=== PATIENT | female | born 1945 | race Caucasian/White ===

== ENCOUNTER 2018-03-19 14:28 | Observation (INO) | payer OTHER ==
[2018-03-19 14:57] LABS: Absolute Lymphocytes (CBC) 0.7 K/uL (0.7-4.9); Absolute Monocytes 0.5 K/uL (0.1-1.3); Absolute Neutrophil 3.5 K/uL (1.8-8.0); Basophils % 0.9 % (0-1.3); Eosinophils % 2.5 % (0-4.4); Hematocrit 34.6 % (36.0-45.0); Lymphocytes % 14.6 % (15.3-44.8); MCV 92.3 fL (80-100); MPV 6.9 fL (7.6-11.3); Monocytes % 9.6 % (3.3-12.3); RBC Red Blood Cell Count 3.75 M/uL (3.86-4.86)
--- NOTE | 2018-03-19 15:02 | RAD REPORT ---
EXAM DESCRIPTION: CT - Head Brain Wo Cont - 03/19/2018 2:56 pm CLINICAL HISTORY: Altered consciousness, weakness. COMPARISON: None. TECHNIQUE: All CT scans are performed using dose optimization technique as appropriate and may inclu de automated exposure control or mA/KV adjustment according to patient size. FINDINGS: No intracranial hemorrhage, hydrocephalus or extra-axial fluid collection.Mild generalized brain atrophy is present with mild periventricular and deep white matter chronic microvascular ische romaine changes.No areas of brain edema or evidence of midline shift. The paranasal sinuses and mastoids are clear. The calvarium is intact. IMPRESSION: No acute intracranial abnormality.
[2018-03-19 15:04] LABS: Protime INR 0.91
--- NOTE | 2018-03-19 15:10 | RAD REPORT ---
EXAM DESCRIPTION: RAD - Chest Single View - 03/19/2018 3:05 pm CLINICAL HISTORY: Chest pain. COMPARISON: None. FINDINGS: Portable technique limits examination quality. The lungs are grossly clear. The heart is normal in size. No displaced fractures.Sternotomy wires not ed. IMPRESSION: No acute intrathoracic process suspected.
[2018-03-19 15:11] LABS: Bicarbonate 26 mEq/L (21-31); Glucose Level 243 mg/dL (65-120); Potassium 3.9 mEq/L (3.6-5.0); Sodium Level 137 mEq/L (135-145)
[2018-03-19 15:17] LABS: ALT/SGPT 22 IU/L (10-60); AST/SGOT 24 IU/L (10-42); Albumin 4.1 g/dL (3.2-5.5); Alkaline Phosphatase 119 IU/L (42-121); BUN Blood Urea Nitrogen 31 mg/dL (6-20); Bilirubin Direct < 0.1 mg/dL (0-0.2); Bilirubin Total 0.5 mg/dL (0.3-1.2); Creatine Phosphokinase 30 IU/L (22-269); Magnesium 2.1 mg/dL (1.8-2.5); Protein, Total 7.2 g/dL (6.0-8.3)
[2018-03-19 15:20] LABS: CKMB Creatine Kinase MB 1.3 ng/ml (0.3-4.0)
[2018-03-19] MEDS ORDERED: NA CHLORIDE 0.9% 1,000 ML ONE (15:36)
[2018-03-19] MEDS ORDERED: CEFTRIAXONE/SWI 1gm 1 GM/10 ML SYR ONE (16:18)
[2018-03-19 16:20] LABS: Urine Amorphous Sediment 1+ /HPF (NONE SEEN); Urine Bacteria 20-50 /HPF (<20); Urine Culture Reflex Order REFLEXED; Urine Mucus 1+ /HPF (NONE SEEN); Urine RBC <5 /HPF (NONE SEEN)
[2018-03-19] MEDS ORDERED: ACETAMINOPHEN 500 MG TAB PO PRN (16:43)
[2018-03-19] MEDS ORDERED: ONDANSETRON 4 MG/2 ML VIAL IV PRN (16:43)
--- NOTE | 2018-03-19 16:46 | EDPHYS ---
Physician Documentation [facility] Name: Annette Bautista Age: 72 yrs Sex: Female : 1945 Arrival Date: 03/19/2018 Time: 14:32 Bed 15 Private MD: ED Physician Chaka Phelps HPI: 03/19 14:36 This 72 yrs old Female presents to ER via Unassigned with complaints of cp General Weakness. 14:36 The patient presents to the emergency department with weakness of the entire body, cp generalized weakness, difficulty standing, the patient cannot stand, the patient is generally weak. Onset: The symptoms/episode began/occurred today. 14:36 Patient's baseline: Neuro: alert and fully oriented, Motor: no deficits, Ambulation: cp walks without assistance, Speech: normal. 14:36 Associated signs and symptoms: Pertinent negatives: altered mental status, fever, cp headache, neck stiffness. Historical: - Allergies: 14:49 NKA; iw - Home Meds: 14:55 Lantus 100 unit/mL Sub-Q soln [Active]; iw 15:06 Levemir 100 unit/mL subcutaneous soln [Active]; sucralfate 1 gram Oral tab [Active]; iw Abilify 2 mg oral tab [Active]; Zoloft 50 mg Oral tab [Active]; - PMHx: 14:49 Myocardial infarction; iw 14:55 Diabetes - IDDM; iw - PSHx: 14:49 Hysterectomy; ; Heart stents; iw 14:55 CABG; iw - Immunization history:: Adult Immunizations up to date. - Social history:: Smoking status: Patient/guardian denies using tobacco. ROS: 14:40 Constitutional: Negative for body aches, chills, fever, poor PO intake. cp 14:40 Eyes: Negative for injury, pain, redness, and discharge. cp 14:40 ENT: Negative for drainage from ear(s), ear pain, sore throat, difficulty swallowing, difficulty handling secretions. 14:40 Cardiovascular: Negative for chest pain, edema, palpitations. 14:40 Respiratory: Negative for cough, shortness of breath, wheezing. 14:40 Abdomen/GI: Negative for abdominal pain, vomiting, diarrhea, constipation, anorexia, black/tarry stool, rectal bleeding. 14:40 Back: Negative for pain at rest, pain with movement, radiated pain. 14:40 : Negative for urinary symptoms. 14:40 Skin: Negative for cellulitis, rash. 14:40 Neuro: Positive for general weakness, Negative for altered mental status, headache, syncope, near syncope. 14:40 All other systems are negative. Exam: 14:42 ECG was reviewed by the Attending Physician. cp 14:48 Constitutional: The patient appears in no acute distress, alert, awake, cp non-diaphoretic, non-toxic, well developed, well nourished. 14:48 Head/Face: Normocephalic, atraumatic. cp 14:48 Eyes: Periorbital structures: appear normal, Pupils: equal, round, and reactive to light and accomodation, Extraocular movements: intact throughout, Conjunctiva: normal, no exudate, no injection, Sclera: no appreciated abnormality, Lids and lashes: appear normal, bilaterally. 14:48 ENT: External ear(s): are unremarkable, Ear canal(s): are normal, clear, TM's: dullness, bilaterally, Nose: is normal, Mouth: Lips: moist, Oral mucosa: moist, Posterior pharynx: is normal, airway is patent, no erythema, no exudate. 14:48 Neck: ROM/movement: is normal, is supple, no range of motions limitations, no meningismus, no nuchal rigidity. 14:48 Chest/axilla: Inspection: normal, Palpation: is normal, no crepitus, no tenderness. 14:48 Cardiovascular: Rate: normal, Rhythm: regular, Pulses: Pulses are 2+ in right radial artery and left radial artery. Edema: is not appreciated, JVD: is not appreciated. 14:48 Respiratory: the patient does not display signs of respiratory distress, Respirations: normal, no use of accessory muscles, no retractions, no splinting, no tachypnea, labored breathing, is not present, Breath sounds: decreased breath sounds, that are mild, throughout, rhonchi, are not appreciated, stridor, is not appreciated, wheezing: is not appreciated. 14:48 Abdomen/GI: Inspection: abdomen appears normal, Bowel sounds: active, all quadrants, Palpation: abdomen is soft and non-tender, in all quadrants, rebound tenderness, is not appreciated, voluntary guarding, is not appreciated, involuntary guarding, is not appreciated. 14:48 Back: pain, is absent. 14:48 Skin: cellulitis, is not appreciated, no rash present. 14:48 Neuro: Orientation: to person, place \T\ time. Mentation: lucid, able to follow commands, Cerebellar function: is grossly normal, Motor: moves all fours, general weakness w/o focal deficits, Sensation: no obvious gross deficits. Vital Signs: 14:41 BP 110 / 59; Pulse 68; Resp 14 S; Temp 99.0(O); Pulse Ox 92% on R/A; Weight 77.11 kg; iw Height 5 ft. 3 in. (160.02 cm); Pain 0/10; 15:45 BP 151 / 71; Pulse 75; Resp 15; Pulse Ox 98% on R/A; Pain 0/10; em 16:48 BP 141 / 65; Pulse 73; Resp 16; Pulse Ox 96% on R/A; Pain 0/10; em 17:50 BP 124 / 57; Pulse 73; Resp 16; Temp 98.6(O); Pulse Ox 94% on R/A; Pain 0/10; em 14:41 Body Mass Index 30.11 (77.11 kg, 160.02 cm) iw MDM: 14:37 Patient medically screened. cp 15:00 Differential diagnosis: bacterial infection, pneumonia UTI, meningitis, sepsis. cp 16:30 Data reviewed: vital signs, nurses notes, lab test result(s), EKG, radiologic studies, cp CT scan, plain films. 16:35 Physician consultation: Barbara Sheldon MD was contacted at 16:35, regarding admission, cp to the telemetry unit. patient's condition, and will see patient in ED, shortly. 03/19 14:36 Order name: Basic Metabolic Panel; Complete Time: 15:32 cp 03/19 15:48 Interpretation: Normal except: GLUC 243; BUN 31; CRE 1.36; GFR 38. cp 03/19 14:36 Order name: BNP; Complete Time: 15:32 cp 03/19 14:36 Order name: CBC with Diff; Complete Time: 15:15 cp 03/19 15:15 Interpretation: Normal except: RBC 3.75; HCT 34.6; MPV 6.9; LYM% 14.6. cp 03/19 14:36 Order name: Ckmb; Complete Time: 15:32 cp 03/19 14:36 Order name: CPK; Complete Time: 15:32 cp 03/19 14:36 Order name: LFT's; Complete Time: 15:32 cp 03/19 14:36 Order name: Magnesium; Complete Time: 15:32 cp 03/19 14:36 Order name: PT-INR; Complete Time: 15:15 cp 03/19 14:36 Order name: Ptt, Activated; Complete Time: 15:15 cp 03/19 14:36 Order name: Troponin (emerg Dept Use Only); Complete Time: 15:32 cp 03/19 14:36 Order name: Blood Culture Adult (2) 03/19 14:36 Order name: Lactate; Complete Time: 15:48 cp 03/19 14:36 Order name: Procalcitonin; Complete Time: 15:48 cp 03/19 15:51 Order name: Urine Microscopic Only; Complete Time: 16:27 cp 03/19 16:27 Interpretation: Abnormal: UBACT 20-50. 03/19 14:36 Order name: XRAY Chest (1 view); Complete Time: 15:15 cp 03/19 14:36 Order name: EKG; Complete Time: 14:36 cp 03/19 14:36 Order name: Cardiac monitoring; Complete Time: 14:49 cp 03/19 14:36 Order name: EKG - Nurse/Tech; Complete Time: 14:49 cp 03/19 14:36 Order name: IV Saline Lock; Complete Time: 14:49 03/19 14:36 Order name: Labs collected and sent; Complete Time: 14:49 03/19 14:36 Order name: O2 Per Protocol; Complete Time: 14:49 cp 03/19 14:36 Order name: O2 Sat Monitoring; Complete Time: 14:50 03/19 14:36 Order name: Urine Dipstick-Ancillary (obtain specimen); Complete Time: 15:50 03/19 14:36 Order name: CT Head Brain wo Cont; Complete Time: 15:15 cp 03/19 15:15 Interpretation: Report reviewed. 03/19 15:54 Order name: Urine Dipstick--Ancillary (enter results) eb 03/19 16:22 Order name: Urine Culture [facility] 03/19 16:47 Order name: Heart Healthy [facility] 03/19 16:47 Order name: Physical Therapy Consult [facility] 03/19 14:36 Order name: Cath; Complete Time: 15:50 cp EC:42 Rate is 68 beats/min. Rhythm is regular. MS interval is normal. QRS interval is normal. cp QT interval is normal. No ST changes noted. Interpreted by me. Reviewed by me. Administered Medications: 15:45 Drug: NS 0.9% 1000 ml Route: IV; Rate: 1 bolus; Site: right forearm; em 16:57 Follow up: IV Status: Completed infusion; IV Intake: 1000ml em 16:25 Drug: Rocephin - (cefTRIAXone) 1 grams Route: IVPB; Infused Over: 30 mins; Site: right iw forearm; 17:00 Follow up: Response: No adverse reaction; IV Status: Completed infusion em Point of Care Testing: Blood Glucose: 14:41 Blood Glucose: 253 mg/dL; iw Ranges: Critical Glucose Levels:Adult <50 mg/dl or >400 mg/dl <40 mg/dl or >180 mg/dl Disposition: 03/19/18 16:45 Hospitalization ordered by Barbara Sheldon for Observation. Preliminary diagnosis are Weakness - Generalized, Urinary tract infection, site not specified. - Bed requested for Telemetry/MedSurg (observation). - Status is Observation. em - Condition is Stable. - Problem is new. - Symptoms have improved. UTI on Admission? Yes Addendum: 03/21/2018 08:59 Co-signature as Attending Physician, Chaka Phelps MD I agree with the assessment and c garcia plan of care. Signatures: Dispatcher [employer] [facility] Chaka Phelps MD MD cha Munoz, Edgar, SPINNING DOFFER SPINNING DOFFER em Danielle Ochoa RN RN iw Chaka Cooley PA PA cp Botello, Elizabeth eb Corrections: (The following items were deleted from the chart) 03/19 15:06 14:55 Home Meds: Novolog 100 unit/mL Sub-Q soln; iw iw
--- NOTE | 2018-03-19 16:46 | ER ---
Nurse's Notes [facility] Name: Annette Bautista Age: 72 yrs Sex: Female : 1945 Arrival Date: 03/19/2018 Time: 14:32 Bed 15 Private MD: Diagnosis: Weakness-Generalized;Urinary tract infection, site not specified Presentation: 03/19 14:37 Presenting complaint: EMS states: pt has been feeling bad for past couple days, today iw she c/o increased generalized weakness, couldn't stand up, EMS states pt was in car when she arrived on scene, appeared pale and lethargic, BP was 70's over 30 on scene, VB=678, pt A\T\OX3 upon arrival to ER, BP up to 110 systolic, denies CP or SOB, c/o dizziness. Transition of care: patient was not received from another setting of care. Onset of symptoms was March 17, 2018. Initial Sepsis Screen: Does the patient meet any 2 criteria? No. Patient's initial sepsis screen is negative. Does the patient have a suspected source of infection? No. Patient's initial sepsis screen is negative. Care prior to arrival: Glucose check: 244. 14:37 Method Of Arrival: EMS: [facility] iw 14:37 Acuity: PADMINI 2 iw Triage Assessment: 15:34 General: Appears. em Historical: - Allergies: 14:49 NKA; iw - Home Meds: 14:55 Lantus 100 unit/mL Sub-Q soln [Active]; iw 15:06 Levemir 100 unit/mL subcutaneous soln [Active]; sucralfate 1 gram Oral tab [Active]; iw Abilify 2 mg oral tab [Active]; Zoloft 50 mg Oral tab [Active]; - PMHx: 14:49 Myocardial infarction; iw 14:55 Diabetes - IDDM; iw - PSHx: 14:49 Hysterectomy; ; Heart stents; iw 14:55 CABG; iw - Immunization history:: Adult Immunizations up to date. - Social history:: Smoking status: Patient/guardian denies using tobacco. Screenin:55 Abuse screen: Denies threats or abuse. Denies injuries from another. Nutritional iw screening: No deficits noted. Tuberculosis screening: No symptoms or risk factors identified. Fall Risk IV access (20 points). Assessment: 14:50 General: Appears in no apparent distress. ill, Behavior is calm, cooperative, flat. em Pain: Denies pain. Neuro: Level of Consciousness is awake, alert, obeys commands, Oriented to person, place, time, situation, Weakness Speech is normal, Facial symmetry appears normal, Reports weakness since this morning. Cardiovascular: Capillary refill < 3 seconds Patient's skin is warm and dry. Cardiovascular: Heart tones S1 S2 present Rhythm is sinus rhythm. Respiratory: Airway is patent Respiratory effort is even, unlabored, Respiratory pattern is regular, symmetrical. GI: Abdomen is flat. : No signs and/or symptoms were reported regarding the genitourinary system. EENT: No signs and/or symptoms were reported regarding the EENT system. Derm: Skin is intact, Skin is pink, warm \T\ dry. Musculoskeletal: Range of motion: intact in all extremities. 14:55 Reassessment: Patient appears in no apparent distress at this time. I agree with above iw assessment by Portillo Will LVN. 15:33 Reassessment: critical lab result, lactate 28.5, ANA Castañeda notified. em 16:30 Reassessment: Patient appears in no apparent distress at this time. Patient and/or em family updated on plan of care and expected duration. Pain level reassessed. Patient is alert, oriented x 3, equal unlabored respirations, skin warm/dry/pink. friend at bedside. 16:44 Reassessment: Patient appears in no apparent distress at this time. Patient and/or em family updated on plan of care and expected duration. Pain level reassessed. Patient is alert, oriented x 3, equal unlabored respirations, skin warm/dry/pink. Need any information call Dayanara (friend) [phone] Patient states feeling better. 17:48 Reassessment: Patient appears in no apparent distress at this time. Patient and/or em family updated on plan of care and expected duration. Pain level reassessed. Patient is alert, oriented x 3, equal unlabored respirations, skin warm/dry/pink. resting comfortably in bed. Vital Signs: 14:41 BP 110 / 59; Pulse 68; Resp 14 S; Temp 99.0(O); Pulse Ox 92% on R/A; Weight 77.11 kg; iw Height 5 ft. 3 in. (160.02 cm); Pain 0/10; 15:45 BP 151 / 71; Pulse 75; Resp 15; Pulse Ox 98% on R/A; Pain 0/10; em 16:48 BP 141 / 65; Pulse 73; Resp 16; Pulse Ox 96% on R/A; Pain 0/10; em 17:50 BP 124 / 57; Pulse 73; Resp 16; Temp 98.6(O); Pulse Ox 94% on R/A; Pain 0/10; em 14:41 Body Mass Index 30.11 (77.11 kg, 160.02 cm) iw ED Course: 14:25 Initial lab(s) drawn, by ED staff. iw 14:32 Patient arrived in ED. iw 14:34 Chaka Cooley PA is PHCP. cp 14:34 Chaka Phelps MD is Attending Physician. cp 14:35 Danielle Ochoa, ANDRES is Primary Nurse. iw 14:35 Inserted saline lock: 20 gauge in right forearm, using aseptic technique. Blood iw collected. IV inserted by Portillo Will LVN. 14:40 Triage completed. iw 14:41 Arm band placed on. iw 14:55 CT completed. Patient moved to CT via stretcher. Patient moved back from CT. bq 14:56 CT Head Brain wo Cont In Process Unspecified. EDMS 15:02 X-ray completed. Patient tolerated procedure well. Patient moved back from radiology. kp1 15:03 XRAY Chest (1 view) In Process Unspecified. EDMS 15:41 Lombardo cath inserted, using sterile technique, 16 Fr., by ED staff, balloon inflated, to mh5 gravity drainage, urine specimen collected. 16:06 No provider procedures requiring assistance completed. em 16:08 Patient has correct armband on for positive identification. Placed in gown. Bed in low em position. Call light in reach. Side rails up X 1. Adult w/ patient. 16:45 Barbara Sheldon MD is Hospitalizing Provider. cp 18:09 Patient admitted, IV remains in place. em Administered Medications: 15:45 Drug: NS 0.9% 1000 ml Route: IV; Rate: 1 bolus; Site: right forearm; em 16:57 Follow up: IV Status: Completed infusion; IV Intake: 1000ml em 16:25 Drug: Rocephin - (cefTRIAXone) 1 grams Route: IVPB; Infused Over: 30 mins; Site: right iw forearm; 17:00 Follow up: Response: No adverse reaction; IV Status: Completed infusion em Point of Care Testing: Blood Glucose: 14:41 Blood Glucose: 253 mg/dL; iw Ranges: Intake: 16:57 IV: 1000ml; Total: 1000ml. em Outcome: 16:45 Decision to Hospitalize by Provider. cp 18:10 Admitted to Med/surg accompanied by tech, via stretcher, room 217, with chart, Report em called to ANDRES Amaro 18:10 Condition: good 18:10 Instructed on the need for admit, Demonstrated understanding of instructions. 18:14 Patient left the ED. em Signatures: Dispatcher [employer] EDMS Roseann Gregorio bq Suman, Portillo, PLATFORM WORKER PLATFORM WORKER em Danielle Ochoa RN RN iw Chaka Cooley, ANA Butler, Nikki 5 Jose F, Sally kp1 Corrections: (The following items were deleted from the chart) 14:55 14:35 Inserted saline lock: 20 gauge in right forearm, using aseptic technique. Blood iw collected. iw 15:06 14:55 Home Meds: Novolog 100 unit/mL Sub-Q soln; iw iw 18:08 16:44 Reassessment: Patient appears in no apparent distress at this time. Patient em and/or family updated on plan of care and expected duration. Pain level reassessed. Patient is alert, oriented x 3, equal unlabored respirations, skin warm/dry/pink. Need any information call Mahesh (friend) [phone] Patient states feeling better. em 18:16 16:30 Reassessment: Patient appears in no apparent distress at this time. Patient em and/or family updated on plan of care and expected duration. Pain level reassessed. Patient is alert, oriented x 3, equal unlabored respirations, skin warm/dry/pink. em
[2018-03-19 16:58] LABS: Urine Blood NEGATIVE (NEG); Urine Glucose 3+ (NEG); Urine Protein NEGATIVE (NEG); Urine Specific Gravity 1.015 (1.005-1.030)
--- NOTE | 2018-03-19 17:25 | P.HP ---
Certification for Inpatient Patient admitted to: Observation With expected LOS: <2 Midnights Patient will require the following post-hospital care: None Practitioner: I am a practitioner with admitting privileges, knowledge of patient current condition, hospital course, and medical plan of care. Services: Services provided to patient in accordance with Admission requirements found in Title 42 Section 412.3 of the Code of Federal Regulations Patient History Date of Service: 03/19/18 Primary Care Provider: OOT Reason for admission: Weakness and fever History of Present Illness: This is a 72-year-old female with significant past medical history of hypertension, type 1 diabetes, history of CO who presented to the ED complaining of having some generalized weakness. Patient states that she has been having some generalized weakness for about 3-4 days and has been getting progressively worse. Patient does live out of town in [place] however was visiting a friend here and got to a point where she was not able to get out of bed and thus decided to come to the ER. Patient also has some fever chills at home that she noted however did not take her temperature at home. Patient has not taken anything for fever. Patient stated that in the past similar symptoms and was treated for UTI. In ED patient had extensive workup done which was negative for any acute abnormality however UA was consistent with urinary tract infection this patient was referred over for admission. Review of Systems General: As per HPI Physical Examination - Physical Exam General: Alert, Oriented x3, Mild distress HEENT: Atraumatic Neck: Supple Respiratory: Clear to auscultation bilaterally, Normal air movement Cardiovascular: Regular rate/rhythm, Normal S1 S2 Gastrointestinal: Normal bowel sounds, Soft and benign, Non-distended, No tenderness Musculoskeletal: No tenderness Integumentary: No rashes Neurological: Normal speech, Normal tone, Normal affect, Abnormal strength Lymphatics: No axilla or inguinal lymphadenopathy - Studies Laboratory Data (last 24 hrs) 03/19/18 14:30: PT 10.7, INR 0.91, APTT 23.8 L 03/19/18 14:30: WBC 4.8, Hgb 12.0, Hct 34.6 L, Plt Count 377 03/19/18 14:30: B-Natriuretic Peptide 401 H 03/19/18 14:30: Sodium 137, Potassium 3.9, BUN 31 H, Creatinine 1.36 H, Glucose 243 H, Magnesium 2.1, Total Bilirubin 0.5, AST 24, ALT 22, Alkaline Phosphatase 119 Assessment and Plan - Problems (Diagnosis) (1) Generalized weakness Current Visit: Yes Status: Acute Plan: Generalized weakness for 3 days and progressively getting worse -PT consulted. -IV fluids for now (2) UTI (urinary tract infection) Current Visit: Yes Status: Acute Plan: UA with + bacteria -IV rocephin -Urine culture pending -Elevated Lactate but WNL WBC -Repeat Lab in AM Qualifiers: Urinary tract infection type: acute cystitis Hematuria presence: without hematuria Qualified Code(s): N30.00 - Acute cystitis without hematuria (3) Diabetes Current Visit: Yes Status: Acute Plan: H/O of Type 1 Diabetes -Will start on Mild Insulin Sliding scale Qualifiers: Diabetes mellitus type: type 1 Diabetes mellitus complication status: without complication Qualified Code(s): E10.9 - Type 1 diabetes mellitus without complications (4) HTN (hypertension) Current Visit: Yes Status: Acute Plan: Will restart home medication Qualifiers: Hypertension type: essential hypertension Qualified Code(s): I10 - Essential (primary) hypertension (5) CAD (coronary artery disease) Current Visit: Yes Status: Chronic Qualifiers: Coronary Disease-Associated Artery/Lesion type: [place] artery [place] vs. transplanted heart: [place] heart Associated angina: without angina Qualified Code(s): I25.10 - Atherosclerotic heart disease of [place] coronary artery without angina pectoris Discharge Plan: Home Plan to discharge in: 48 Hours - Advance Directives Does patient have a Living Will: No Does patient have a Durable POA for Healthcare: No - Code Status/Comfort Care Code Status Assessed: Yes Critical Care: No
[2018-03-19] MEDS: NA CHLORIDE 0.9% 1,000 ML IV SCH (18:40)
[2018-03-19] MEDS: INSULIN -REGULAR HUMAN 50 UNIT/0.5 ML ML SQ SCH (21:00)
[2018-03-20] MEDS: NA CHLORIDE 0.9% 1,000 ML IV SCH ×3 (02:48→21:20)
[2018-03-20 06:46] LABS: Absolute Monocytes 0.4 K/uL (0.1-1.3); Absolute Neutrophil 2.4 K/uL (1.8-8.0); Basophils % 1.5 % (0-1.3); Eosinophils % 4.5 % (0-4.4); Lymphocytes % 24.8 % (15.3-44.8); MCH 31.3 pg (27.0-35.0); MCV 93.8 fL (80-100); MPV 7.3 fL (7.6-11.3); Monocytes % 10.7 % (3.3-12.3)
[2018-03-20 07:05] LABS: Albumin 3.3 g/dL (3.2-5.5); Bilirubin Total 0.4 mg/dL (0.3-1.2); Phosphorus 3.9 mg/dL (2.5-4.3); Potassium 3.8 mEq/L (3.6-5.0); Protein, Total 5.7 g/dL (6.0-8.3)
[2018-03-20] MEDS: INSULIN -REGULAR HUMAN 50 UNIT/0.5 ML ML SQ SCH ×4 (08:20→21:17)
[2018-03-20] MEDS ORDERED: CEFTRIAXONE/SWI 1gm 1 GM/10 ML SYR IV SCH (09:00)
[2018-03-20] MEDS ORDERED: CEFTRIAXONE 1 GM/NS 50 ML 1 GM/50 ML BAG IV SCH ×2 (09:00→10:00)
[2018-03-20] MEDS ORDERED: POTASSIUM CL SA 10 MEQ TAB PO ONE (09:00)
--- NOTE | 2018-03-20 09:31 | P.PN ---
Subjective Date of Service: 03/20/18 Primary Care Provider: JOANNE Chief Complaint: Weakness and fever Pt seen and examined at bedside. Chart reviewed. Currently pt has no complains to offer. States she feels much better than before. Has not gotten out of bed. Awaiting PT eval. Review of Systems General: As per HPI Physical Examination - Vital Signs Temperature: 97.3 F Blood Pressure: 132/59 Pulse: 57 Respirations: 18 Pulse Ox (%): 97 - Physical Exam General: Alert, In no apparent distress HEENT: Atraumatic Neck: Supple, JVD not distended Respiratory: Clear to auscultation bilaterally, Normal air movement Cardiovascular: Regular rate/rhythm, Normal S1 S2 Gastrointestinal: Normal bowel sounds, No tenderness Musculoskeletal: No tenderness Integumentary: No rashes Neurological: Normal speech, Normal tone, Normal affect, Abnormal strength ( Weakness BL UE) Lymphatics: No axilla or inguinal lymphadenopathy - Studies Laboratory Data (last 24 hrs) 03/19/18 14:30: PT 10.7, INR 0.91, APTT 23.8 L 03/19/18 14:30: WBC 4.8, Hgb 12.0, Hct 34.6 L, Plt Count 377 03/19/18 14:30: B-Natriuretic Peptide 401 H 03/19/18 14:30: Sodium 137, Potassium 3.9, BUN 31 H, Creatinine 1.36 H, Glucose 243 H, Magnesium 2.1, Total Bilirubin 0.5, AST 24, ALT 22, Alkaline Phosphatase 119 Medications List Reviewed: Yes Assessment & Plan - Problems (Diagnosis) (1) Generalized weakness Current Visit: Yes Status: Acute Plan: Generalized weakness for 3 days and progressively getting worse. Today pt states she feels less weak and can get up out of bed today. -PT consulted. Awaiting reccs (2) UTI (urinary tract infection) Current Visit: Yes Status: Acute Plan: UA with + bacteria 20-50 -IV rocephin -Urine culture pending -Elevated Lactate in ED. Improved today. -Repeat Lab in AM Qualifiers: Urinary tract infection type: acute cystitis Hematuria presence: without hematuria Qualified Code(s): N30.00 - Acute cystitis without hematuria (3) Diabetes Current Visit: Yes Status: Acute Plan: H/O of Type 1 Diabetes -Mild Insulin Sliding scale Qualifiers: Diabetes mellitus type: type 1 Diabetes mellitus complication status: without complication Qualified Code(s): E10.9 - Type 1 diabetes mellitus without complications (4) HTN (hypertension) Current Visit: Yes Status: Acute Plan: Restarted on Home medication Qualifiers: Hypertension type: essential hypertension Qualified Code(s): I10 - Essential (primary) hypertension (5) CAD (coronary artery disease) Current Visit: Yes Status: Chronic Qualifiers: Coronary Disease-Associated Artery/Lesion type: [place] artery [place] vs. transplanted heart: [place] heart Associated angina: without angina Qualified Code(s): I25.10 - Atherosclerotic heart disease of [place] coronary artery without angina pectoris Discharge Plan: Home (Pt is from [place] and will be returning there. May need setup) Plan to discharge in: 48 Hours - Code Status/Comfort Care Code Status Assessed: Yes Critical Care: No
[2018-03-20] MEDS: CEFTRIAXONE/SWI 1gm 1 GM/10 ML SYR IV SCH (11:47)
[2018-03-21] MEDS: NA CHLORIDE 0.9% 1,000 ML IV SCH ×2 (05:20→17:44)
[2018-03-21 06:20] LABS: Albumin 3.1 g/dL (3.2-5.5); Bilirubin Total 0.4 mg/dL (0.3-1.2); Potassium 4.1 mEq/L (3.6-5.0); Protein, Total 5.6 g/dL (6.0-8.3)
[2018-03-21 06:53] LABS: Absolute Lymphocytes (CBC) 1.6 K/uL (0.7-4.9); Absolute Monocytes 0.6 K/uL (0.1-1.3); Absolute Neutrophil 2.5 K/uL (1.8-8.0); Eosinophils % 5.1 % (0-4.4); Hematocrit 30.1 % (36.0-45.0); Lymphocytes % 32.1 % (15.3-44.8); MCH 31.2 pg (27.0-35.0); MPV 7.2 fL (7.6-11.3); Monocytes % 11.8 % (3.3-12.3)
--- NOTE | 2018-03-21 07:20 | EKG ---
Test Date: 2018-03-19 Test Time: 14:35:19 Ash Conveyor Operator: HIGINIO MEASUREMENT RESULTS: Intervals: Rate: 68 MA: 186 QRSD: 64 QT: 430 QTc: 457 [place]: P: 38 MA: 186 QRS: 47 T: 65 INTERPRETIVE STATEMENTS: Normal sinus rhythm Low voltage QRS Abnormal ECG No previous ECG available for comparison Electronically Signed On 03-21-18 07:19:14 CDT by Wali Larkin
[2018-03-21] MEDS: INSULIN -REGULAR HUMAN 50 UNIT/0.5 ML ML SQ SCH ×4 (07:30→19:46)
[2018-03-21] MEDS: CEFTRIAXONE/SWI 1gm 1 GM/10 ML SYR IV SCH (08:31)
[2018-03-21 08:51] LABS: Thyroid Stimulating Hormone 3.06 uIU/mL (0.34-5.60)
[2018-03-21] MEDS ORDERED: SMZ./TMP. 800/160 MG TABLET PO SCH (09:00)
[2018-03-21 10:13] LABS: A1c Component 0.7 mg/dL; Hemoglobin A1c 8.5 % (4-6.0)
--- NOTE | 2018-03-21 15:49 | P.DS ---
Admission Date: 03/19/18 Discharge Date: 03/21/18 Primary Care Provider: TONY Meek Disposition: ROUTINE DISCHARGE Discharge Condition: GOOD Reason for Admission: Weakness and fever - Problems (1) Diabetes mellitus Current Visit: Yes Status: Chronic Qualifiers: Diabetes mellitus type: type 2 Diabetes mellitus terminal make up operator insulin use: with fpc use Diabetes mellitus complication status: with other specified complication Qualified Code(s): E11.69 - Type 2 diabetes mellitus with other specified complication; Z79.4 - halfway (current) use of insulin; Z79.4 - halfway (current) use of insulin; Z79.4 - watermaster (current) use of insulin; Z79.4 - halfway (current) use of insulin (2) Hyperlipidemia Current Visit: Yes Status: Chronic Qualifiers: Hyperlipidemia type: unspecified Qualified Code(s): E78.5 - Hyperlipidemia , unspecified (3) Depression with anxiety Current Visit: Yes Status: Chronic (4) GERD (gastroesophageal reflux disease) Current Visit: Yes Status: Chronic Qualifiers: Esophagitis presence: esophagitis presence not specified Qualified Code(s) : K21.9 - Gastro-esophageal reflux disease without esophagitis (5) CHF (congestive heart failure) Current Visit: Yes Status: Suspected Qualifiers: Heart failure type: diastolic Heart failure chronicity: chronic Qualified Code(s): I50.32 - Chronic diastolic (congestive) heart failure (6) Acute renal injury Current Visit: Yes Status: Acute (7) Dehydration Current Visit: Yes Status: Acute (8) HTN (hypertension) Onset Date: 03/21/18 Current Visit: Yes Status: Chronic Qualifiers: Hypertension type: essential hypertension Qualified Code(s): I10 - Essential (primary) hypertension (9) UTI (urinary tract infection) Onset Date: 03/21/18 Current Visit: Yes Status: Acute Qualifiers: Urinary tract infection type: acute cystitis Hematuria presence: without hematuria Qualified Code(s): N30.00 - Acute cystitis without hematuria (10) CAD (coronary artery disease) Onset Date: 03/21/18 Current Visit: Yes Status: Chronic Qualifiers: Coronary Disease-Associated Artery/Lesion type: [place] artery [place] vs. transplanted heart: [place] heart Associated angina: without angina Qualified Code(s): I25.10 - Atherosclerotic heart disease of [place] coronary artery without angina pectoris Brief History of Present Illness: 72-year-old female presented emergency room with generalized weakness and fever. Patient with multiple medical problems including diabetes, hypertension, CAD, hyperlipidemia, and depression with anxiety. She is not from this area. Most of her care is done in [place], [place]. The patient was evaluated in the emergency room. She was found to be dehydrated with a UTI. The patient was admitted for treatment. Hospital Course: Patient presented with generalized weakness secondary to UTI. The patient was treated with IV antibiotic therapy. UTI culture was positive for Klebsiella pneumoniae. Patient responded to therapy well. Patient was also found to be dehydrated with acute renal injury. Patient had been taking Lasix for suspected underlying CHF. Medications were adjusted during her stay. At discharge renal function improved back to baseline. Patient was moving appropriately. CT scan of the head showed no acute stroke. Pro calcitonin was negative. At discharge she will continue with Augmentin 500 mg 1 pill twice daily for 5 days. UTI prevention education will be provided. Recommendation is to recheck urinalysis in 7-10 days to monitor resolution. This can be further monitored and addressed by her PCP. Patient has diabetes mellitus. Hemoglobin A1c 8.5. Better diabetic control is recommended. Patient will continue with her current diabetic regimen including her basal insulin Levemir 10 units subcu twice daily and her insulin sliding scale. Recommendation is to maintain blood sugars less than 140 fasting and less than 2 after meals. Further adjustment can be done by her PCP. Patient has a history of CAD with possible underlying CHF. She will continue with aspirin 81 mg daily and Plavix 75 mg daily. Patient will continue with a 1500 cc per day fluid restriction. Patient will continue at a lower dose of Lasix 40 mg 1 pill once daily and lower dose of potassium supplementation 1 pill daily due to recent acute renal injury. Recommendation is to recheck lab- BMP in 1 week. Medication may need to be adjusted up if she develops increasing shortness of breath or edema. Recommendation is for the patient follow up with cardiology as an outpatient to further monitor. Patient has hyperlipidemia. Patient will continue with Lipitor 40 mg 1 pill once daily and Tricor 40 mg 1 pill daily. Patient has depression with anxiety. Patient continue with her medication Abilify, Zoloft and trazodone. Further adjustment in medication can be done by her psychiatrist. Recommendation is to follow up with psychiatrist outpatient to further monitor and address. Patient had acute renal injury likely related to medication and dehydration along with UTI. Patient will continue with above recommendation. Recommendation is to recheck lab-BMP in 1 week to monitor progress. Recommendation on no further use of nonsteroidal anti-inflammatories due to her history of diabetes, hyperlipidemia, CAD. Patient has GERD. She will continue with Protonix 40 mg 1 pill once daily. Patient also uses Carafate and Bentyl. Further adjustment in medication can be done by her manager continuous improvement. Prior to discharge social work will assess of the patient requires home health and physical therapy at discharge. Vital Signs/Physical Exam: Temp Pulse Resp BP Pulse Ox 99.8 F 112 H 18 126/80 98 03/21/18 12:00 03/21/18 12:00 03/21/18 12:00 03/21/18 12:00 03/21/18 12:00 General: Alert, In no apparent distress, Oriented x3, Cooperative HEENT: Atraumatic, Mucous membr. moist/pink Neck: Supple, No Thyromegaly Respiratory: Clear to auscultation bilaterally, Normal air movement Cardiovascular: Normal pulses, Regular rate/rhythm Gastrointestinal: Normal bowel sounds, Soft and benign, Non-distended, No tenderness, No masses, No rebound, No guarding Musculoskeletal: No erythema, No tenderness, No warmth Integumentary: No tenderness/swelling, No erythema, No warmth, No cyanosis Neurological: Normal speech, Normal strength at 5/5 x4 extr, Normal tone, Normal affect Laboratory Data at Discharge: WBC 5.1 K/uL (4.3-10.9) D 03/21/18 04:25 Hgb 10.0 g/dL (12.0-15.0) L 03/21/18 04:25 Hct 30.1 % (36.0-45.0) L 03/21/18 04:25 Plt Count 351 K/uL (152-406) 03/21/18 04:25 PT 10.7 SECONDS (9.5-12.5) 03/19/18 14:30 INR 0.91 03/19/18 14:30 APTT 23.8 SECONDS (24.3-36.9) L 03/19/18 14:30 Sodium 141 mEq/L (135-145) 03/21/18 04:25 Potassium 4.1 mEq/L (3.6-5.0) 03/21/18 04:25 BUN 22 mg/dL (6-20) H 03/21/18 04:25 Creatinine 0.72 mg/dL (0.44-1.00) 03/21/18 04:25 Glucose 66 mg/dL (65-120) 03/21/18 04:25 Phosphorus 3.9 mg/dL (2.5-4.3) 03/20/18 06:22 Magnesium 2.1 mg/dL (1.8-2.5) 03/19/18 14:30 Total Bilirubin 0.4 mg/dL (0.3-1.2) 03/21/18 04:25 AST 15 IU/L (10-42) 03/21/18 04:25 ALT 15 IU/L (10-60) 03/21/18 04:25 Alkaline Phosphatase 81 IU/L (42-121) 03/21/18 04:25 B-Natriuretic Peptide 401 pg/ml (<=100) H 03/19/18 14:30 Home Medications: Amox/Clavulanate [Augmentin 500-125 mg Tab] 500 mg PO BID #10 tab 03/21/18 Aripiprazole 2 mg PO DAILY 03/21/18 Atorvastatin Calcium [Lipitor] 40 mg PO BEDTIME 03/21/18 Clopidogrel Bisulfate [Plavix] 75 mg PO DAILY 03/21/18 Dicyclomine [Bentyl*] 10 mg PO QID 03/21/18 Fenofibrate [Tricor*] 48 mg PO DAILY 03/21/18 Furosemide [Lasix] 40 mg PO DAILY #30 tab 03/21/18 Insulin Detemir [Levemir Flextouch] 10 unit SQ BID 03/21/18 Insulin Lispro [Humalog Kwikpen U-100] 30 unit SQ DAILY AFTER SUPPER 03/21/18 Pantoprazole [Protonix Tab*] 40 mg PO DAILY 03/21/18 Potassium Chloride [Klor-Con 10] 10 meq PO DAILY #30 tablet.er 03/21/18 Sertraline [Zoloft*] 50 mg PO DAILY 03/21/18 Sucralfate [Carafate*] 1 gm PO QID 03/21/18 Trazodone [Desyrel*] 150 mg PO BEDTIME 03/21/18 New Medications: Amox/Clavulanate [Augmentin 500-125 mg Tab] 500 mg PO BID #10 tab Furosemide [Lasix] 40 mg PO DAILY #30 tab Potassium Chloride [Klor-Con 10] 10 meq PO DAILY #30 tablet.er Patient Discharge Instructions: 1. Patient will need a follow up with her PCP in 1 week to follow up this hospitalization. 2. Patient presented with generalized weakness secondary to UTI. UTI culture was positive for Klebsiella. At discharge she will continue with Augmentin 500 mg 1 pill twice daily for 5 days. UTI prevention education will be provided. Recommendation is to recheck urinalysis in 7-10 days to monitor resolution. This can be further monitored and addressed by her PCP. 3. Patient has diabetes mellitus. Better diabetic control is recommended. Patient will continue with her current diabetic regimen including her basal insulin Levemir 10 units subcu twice daily and her insulin sliding scale. Recommendation is to maintain blood sugars less than 140 fasting and less than 2 after meals. Further adjustment can be done by her PCP. 4. Patient has a history of CAD with possible underlying CHF. She will continue with aspirin 81 mg daily and Plavix 75 mg daily. Patient will continue with a 1500 cc per day fluid restriction. Patient will continue at a lower dose of Lasix 40 mg 1 pill once daily and lower dose of potassium supplementation 1 daily due to recent acute renal injury. Recommendation is to recheck lab-BMP in 1 week. Recommendation is for the patient follow up with cardiology as an outpatient to further monitor. 5. Patient has hyperlipidemia. Patient will continue with Lipitor 40 mg 1 pill once daily and try cor 40 mg 1 pill daily. 6. Patient has depression with anxiety. Patient will continue with her medication Abilify, Zoloft and trazodone. Further adjustment in medication can be done by her psychiatrist. Recommendation is to follow up with psychiatrist outpatient to further monitor and address. 7. Patient had acute renal injury likely related to medication and dehydration along with UTI. Patient will continue with above recommendation. Recommendation is to recheck lab-BMP in 1 week to monitor progress. Recommendation on no further use of nonsteroidal anti-inflammatories due to her history of diabetes, hyperlipidemia, CAD. 8. Patient has GERD. She will continue with Protonix 40 mg 1 pill once daily. Patient also uses Carafate and Bentyl. Further adjustment in medication can be done by her manager continuous improvement. 9. Prior to discharge social work will assess of the patient requires home health and physical therapy at discharge. Diet: ADA Activity: Fall precautions Time spent managing pt's care (in minutes): 55
[2018-03-21] MEDS ORDERED: AMOX/K CLAV 500 MG TAB PO SCH (21:00)
[2018-03-22] MEDS ORDERED: FUROSEMIDE 40 MG TABLET PO SCH (09:00)
== END 2018-03-21 19:58 | disposition home or self-care (01) ==
LOC: ER 14:28 → ERHOLD 16:52 → 2ND 18:06
PROVIDERS: ADMIT Family Medicine; ATTEND Family Medicine
DX: N39.0 Urinary tract infection, site not specified (principal); B96.1 Klebsiella pneumoniae [K. pneumoniae] as the cause of diseases classified elsewhere; E86.0 Dehydration; N17.9 Acute kidney failure, unspecified; I10 Essential (primary) hypertension; E10.9 Type 1 diabetes mellitus without complications; I25.10 Atherosclerotic heart disease of native coronary artery without angina pectoris; I25.2 Old myocardial infarction; E78.5 Hyperlipidemia, unspecified; F41.8 Other specified anxiety disorders; K21.9 Gastro-esophageal reflux disease without esophagitis
CPT/HCPCS: 36415; 51702; 70450; 71045; 80048; 80053; 80076; 81003; 81015; 82550; 82553; 82962; 83036; 83605; 83735; 83880; 84100; 84145; 84439; 84443; 84484; 85025; 85610; 85730; 87040; 87077; 87086; 87088; 87186; 93005; 96361; 96365; 97163; 99285; G0378; J0696; J7030